=== PATIENT | female | born 1940 | race Two or more races ===

== ENCOUNTER → 2018-05-03 | Outpatient (CLI) | payer OTHER ==
[~2018-05-03] MED LIST: ADVIL100 MG; AMBIEN10 MG; AMOX1TAB12 PO; BENADRYL25 MG; CATAFLAM50 MG PO; CATAPRES0.1 MG; DOXYCYCLINE HY100 M1 PO; HYZAAR 100-251 UDTAB; NORVASC10 MG
== END | disposition home or self-care (01) ==
LOC: TOM 10:20
DX: S06.5X0A Traumatic subdural hemorrhage without loss of consciousness, initial encounter (principal)

== ENCOUNTER 2018-06-14 10:48 | Emergency (ER) | payer OTHER ==
[~2018-06-14] VITALS: Ht 149.9 cm; Wt 88.0 kg
[2018-06-14] MEDS ORDERED: LOSARTAN-HCTZ1 EAC1 (11:38)
== END 2018-06-14 14:57 | disposition home or self-care (01) ==
LOC: ER 10:48
DX: M25.511 Pain in right shoulder (principal); G89.11 Acute pain due to trauma

== ENCOUNTER 2018-06-29 09:48 | Outpatient (CLI) | payer OTHER ==
[~2018-06-29 09:48] MED LIST changes: +LOSARTAN-HCTZ1 EAC1
== END 2018-06-29 09:54 | disposition home or self-care (01) ==
LOC: RAD 09:48
DX: M17.11 Unilateral primary osteoarthritis, right knee (principal); M17.12 Unilateral primary osteoarthritis, left knee; M19.011 Primary osteoarthritis, right shoulder

== ENCOUNTER 2019-04-11 08:02 | Outpatient (CLI) | payer OTHER | END 2019-04-11 15:40 | disposition home or self-care (01) | LOC: TOM 08:02 | DX: K57.92 Diverticulitis of intestine, part unspecified, without perforation or abscess without bleeding (principal); R10.10 Upper abdominal pain, unspecified ==